=== PATIENT | male | born 1960 | race Caucasian/White ===

== ENCOUNTER → 2017-04-23 | Day surgery (SDC) | payer OTHER ==
[2017-04-09 09:21] VITALS: Ht 185.4 cm; Wt 85.5 kg
[~2017-04-23] VITALS: Ht 185.4 cm; Wt 85.5 kg
[~2017-04-23] MED LIST: 5-HT1CAP PO; ASCA500 PO; B-COTAB18 PO; CHOL1TAB42 PO; LIDOCAINE HCL 2% 2 ML VIAL (20MG/ML) ONE; MAGN400T6 PO; MISCCAP80 PO; MULT-506 PO; NTRS PO; PROPOFOL IV EMULSION 10 MG/ML 20 ML VIAL IV ONE; SODIUM CHLORIDE 0.9% 500ML 500 ML IV ONE; SYN125 PO; SYN150; ZINC1TAB PO
--- NOTE | 2017-04-23 13:34 | Endo History and Physical ---
History & Physical Date of Service: Apr 23, 2017. Chief Complaint: Family history of colon cancer Referring Physician: Dr. Shaun Maradiaga History of Present Illness 57 yo CM who presents for colonoscopy secondary to family history of colon cancer. Past Surgical History Hx Cardiac Surgery: Yes (CARDIAC ABLATION) Hx Internal Defibrillator: No Hx Pacemaker: No Hx Abdominal Surgery: Yes (INGUINAL HERNIA (CHILD)) Hx of Implantable Prosthesis: No Hx Post-Op Nausea and Vomiting: No Hx Cancer Surgery: No Hx Thoracic Surgery: No Hx Orthopedic: No Hx Urinary Tract Surgery: No Family History None Social History Smoking Status: Never Smoker Hx Substance Use: No Hx Alcohol Use: No (3 DRINKS/WEEKEND) Allergies Coded Allergies: No Known Allergies (Unverified , 04/23/17) Current Medications Reported Home Medications Medications Dose Route/Sig Max Daily Dose Days Date Category Dose Instructions Vitamin C (Ascorbic Acid) 500 Mg Tab 500 Mg PO BID 04/09/17 Reported Vitamin D (Cholecalciferol) 5,000 Unit Tab 5,000 Units PO QAM 04/09/17 Reported Nutritional Supplement (Enteral Nutritional Formula) Ea 3 Sprays PO DAILY 11/26/14 Reported GLUCATHION FORMULA Chelated Zinc (Zinc) 50 Mg Tab 50 Mg PO DAILY 11/26/14 Reported Probiotic (Probiotic Product) 1 Cap Cap 1 Cap PO DAILY 06/23/14 Reported Vitamin B Complex (B-Complex Vitamins) 1 Tab Tab 1 Tab PO BID 06/23/14 Reported Mag-Ox (Magnesium Oxide) 400 Mg Tab 400 Mg PO DAILY 02/10/14 Reported Synthroid (Levothyroxine Sodium) 150 Mcg Tab 150 Mcg Q2D 02/10/14 Reported Synthroid (Levothyroxine Sodium) 125 Mcg Tab 125 Mg PO Q2D 02/10/14 Reported Multivitamin (Multivitamins) Tab 1 Tab PO DAILY 01/30/13 Reported Vital Signs Weight (Kilograms): 85.45 Height (Feet): 6 Height (Inches): 1 Physical Exam General Appearance: WD/WN, no apparent distress Respiratory/Chest: Auscultation: breath sounds normal Cardiovascular: Heart Auscultation: RRR Abdomen: Bowel Sounds: normal Inspection & Palpation: soft, non-distended, no tenderness, guarding & rebound Assessment and Plan Assessment: 57 yo CM who presents for colonoscopy secondary to family history of colon cancer. Plan: Proceed with colonoscopy.
--- NOTE | 2017-04-23 14:14 | GI REPORT ---
Procedure Date: 04/23/2017 1:55 PM Procedure: Colonoscopy Indications: Family history of colon cancer in a first-degree relative Medicines: Monitored Anesthesia Care Complications: No immediate complications. Estimated Blood Loss: Estimated blood loss: none. Procedure: Pre-Anesthesia Assessment: - Prior to the procedure, a History and Physical was performed, and patient medications and allergies were reviewed. The patient's tolerance of previous anesthesia was also reviewed. The risks and benefits of the procedure and the sedation options and risks were discussed with the patient. All questions were answered, and informed consent was obtained. Prior Anticoagulants: The patient has taken no previous anticoagulant or antiplatelet agents. ASA Grade Assessment: II - A patient with mild systemic disease. After reviewing the risks and benefits, the patient was deemed in satisfactory condition to undergo the procedure. After I obtained informed consent, the scope was passed under direct vision. Throughout the procedure, the patient's blood pressure, pulse, and oxygen saturations were monitored continuously. The scope was introduced through the anus and advanced to the terminal ileum. The colonoscopy was performed without difficulty. The patient tolerated the procedure well. The quality of the bowel preparation was good. The terminal ileum, ileocecal valve, appendiceal orifice, and rectum were photographed. Findings: The perianal and digital rectal examinations were normal. Multiple small-mouthed diverticula were found in the sigmoid colon. Non-bleeding internal hemorrhoids were found during retroflexion. The hemorrhoids were small. Impression: - Diverticulosis in the sigmoid colon. - Non-bleeding internal hemorrhoids. - No specimens collected. Recommendation: - Resume previous diet. - Continue present medications. - Repeat colonoscopy in 5 years for surveillance. - Return to primary care physician as previously scheduled. Barney Murcia, DO 04/23/2017 2:14:30 PM This report has been signed electronically. Note Initiated On: 04/23/2017 1:55 PM I attest to the content of the Intraoperative Record and orders documented therein, exceptions below
--- NOTE | 2017-04-23 14:21 | Discharge Instructions ---
Endoscopy Patient Instructions Date / Procedure(s) Performed Apr 23, 2017. Colonoscopy Allergy Information Coded Allergies: No Known Allergies (Unverified , 04/23/17) Discharge Date / Findings Apr 23, 2017. Diverticulosis Internal hemorrhoids Medication Instructions OK to resume all medications today as prescribed Reported Home Medications Medications Dose Route/Sig Max Daily Dose Days Date Category Dose Instructions Vitamin C (Ascorbic Acid) 500 Mg Tab 500 Mg PO BID 04/09/17 Reported Vitamin D (Cholecalciferol) 5,000 Unit Tab 5,000 Units PO QAM 04/09/17 Reported Nutritional Supplement (Enteral Nutritional Formula) Ea 3 Sprays PO DAILY 11/26/14 Reported GLUCATHION FORMULA Chelated Zinc (Zinc) 50 Mg Tab 50 Mg PO DAILY 11/26/14 Reported Probiotic (Probiotic Product) 1 Cap Cap 1 Cap PO DAILY 06/23/14 Reported Vitamin B Complex (B-Complex Vitamins) 1 Tab Tab 1 Tab PO BID 06/23/14 Reported Mag-Ox (Magnesium Oxide) 400 Mg Tab 400 Mg PO DAILY 02/10/14 Reported Synthroid (Levothyroxine Sodium) 150 Mcg Tab 150 Mcg Q2D 02/10/14 Reported Synthroid (Levothyroxine Sodium) 125 Mcg Tab 125 Mg PO Q2D 02/10/14 Reported Multivitamin (Multivitamins) Tab 1 Tab PO DAILY 01/30/13 Reported Provider Instructions Activity Restrictions - No exercising or heavy lifting for 24 hours. - Do not drink alcohol the day of the procedure. - Do not drive a car or operate machinery until the day after the procedure. - Do not make any important decisions or sign important papers in 24 hours after the procedure. Following Day: - Return to full activity which may include returning to work/school. Diet Start your diet with liquids and light foods (jello, soup, juice, toast). Then eat your usual diet if not nauseated. Treatment For Common After Affects For mild abdominal pain, bloating, or excessive gas: - Rest - Eat lightly - Lie on right side Follow-Up Information Follow-up with Dr. Shaun Maradiaga as scheduled Anesthesia Information What You Should Know You have had a procedure that required some medicine to reduce anxiety and discomfort. This treatment is called moderate sedation. After receiving the treatment, you may be sleepy, but you will be able to breathe on your own. The effects of the treatment may last for several hours. Follow these instructions along with Activity/Diet recommendations noted above: * Do NOT do anything where dizziness or clumsiness would be dangerous. * Rest quietly at home today, then you can be up and about tomorrow. * Have a responsible person stay with you the rest of today. * You may have had an I.V. today. If so, you may take the dressing off later today. Recommendations Call your doctor if: * Trouble breathing * Continuous vomiting for more than 24 hours * Temperature above 101 degrees * Severe abdominal pain or bloating * Pain not relieved by pain medicine ordered * There is increased drainage or redness from any incision * A large amount of rectal bleeding greater than 2-3 tablespoons. (If you had a polyp/s removed or have hemorrhoids, a small amount of blood - from the rectum is to be expected.) * You have any unanswered questions or concerns. IN THE EVENT OF A SERIOUS EMERGENCY, GO TO THE NEAREST EMERGENCY ROOM Your discharge instructions were prepared by provider Barney Murcia. Patient Instructions Signature Page Clemente Mckenzie Patient (or Guardian) Signature/Date: I have read and understand the instructions given to me by my caregivers. Caregiver/RN/Doctor Signature/Date: The above-named patient and/or guardian has received patient instructions on this date. + Original Patient Signature Page (only) stays with chart. Please make copy for patient.
[2017-04-23 14:43] VITALS: BP 125/82; PULSE 50; O2SAT 100
--- NOTE | 2017-04-23 14:48 | Anesthesiology Progress Note ---
Anesthesia Post Op Note Date & Time Apr 23, 2017 at 14:48 Vital Signs Pain Intensity: 0 Vital Signs Past 12 Hours Date Time Temp Pulse Resp B/P (MAP) Pulse Ox O2 Delivery O2 Flow Rate FiO2 04/23/17 14:43 50 18 125/82 (96) 100 Room Air 04/23/17 14:28 50 18 128/82 (97) 99 Room Air 04/23/17 14:13 52 18 115/72 (86) 99 Room Air 04/23/17 13:36 36.5 52 18 132/76 (94) 99 Room Air Notes Mental Status: alert / awake / arousable, participated in evaluation Pt Amnestic to Procedure: Yes Nausea / Vomiting: adequately controlled Pain: adequately controlled Airway Patency, RR, SpO2: stable & adequate BP & HR: stable & adequate Hydration State: stable & adequate Anesthetic Complications: no major complications apparent
== END | disposition home or self-care (01) ==
LOC: C.GI 13:08
PROVIDERS: ATTEND Internal Medicine
DX: Z12.11 Encounter for screening for malignant neoplasm of colon (principal); K57.30 Diverticulosis of large intestine without perforation or abscess without bleeding; K64.8 Other hemorrhoids; Z80.0 Family history of malignant neoplasm of digestive organs